=== PATIENT | male | born 1965 | race Caucasian/White ===

== ENCOUNTER 2016-07-07 20:25 | Inpatient (IN) | payer OTHER ==
--- NOTE | ~2016-07-07 | PRECARD ---
[facility] [address] [place] [address] [place]. [address] NAME: KEARA OREILLY : 61 STATUS : ADM Vin PAT#: [id number] AGE: 51 ADM/REG DATE : 07/07/16 MR#: [id number] REPORT SERV DATE: 07/08/16 DICTATED BY: NAEEM DUMONT DATE: 07/08/16 REPORT STATUS : Draft TRANSCRIBED BY: MODBryant DATE: 07/08/16 DATE OF ADMISSION: 07/07/2016 HISTORY OF PRESENT ILLNESS: The patient is a 51-year-old white male with a history of multivessel stenting. His last stent was approximately a year ago. The patient presented to the emergency room complaining of "palpitations" and "lightheadedness." He has been taking nitroglycerin for the palpitations and says it seems to give him some relief. Cardiac enzymes are negative, and EKG shows no acute changes. PAST MEDICAL HISTORY: Remarkable for coronary artery disease with multivessel stenting, essential hypertension, type 2 diabetes, and morbid obesity. SOCIAL HISTORY: The patient does not smoke. FAMILY HISTORY: Positive for coronary disease. REVIEW OF SYSTEMS: The patient denies cough, wheeze, sputum production, vomiting, diarrhea, or dysuria. PHYSICAL EXAMINATION: VITAL SIGNS: Blood pressure is 140/80, heart rate is 70 and regular, and respirations 16 and unlabored. ENT: Exam is unremarkable. NECK: Shows no jugular venous distention with good carotid upstroke. CHEST: Clear. CARDIOVASCULAR: The PMI is not palpable. S1 is normal. S2 is narrowly split. No gallop is present. ABDOMEN: Soft and nontender with normal bowel sounds. EXTREMITIES: Show no cyanosis, clubbing, or edema. There is an ulcer on the plantar surface of the left foot. SKIN: Warm and dry. NEUROPSYCHIATRIC: The patient is oriented x3 with appropriate affect. LABORATORY DATA: Potassium is 4.0, BUN is 21, and creatinine is 1.3. Hematocrit is 33 and white blood cell count 11,300. IMPRESSION: 1. Acute coronary syndrome. 2. Hypertension. 3. Type 2 diabetes, out of control. 4. Left foot ulcer. 5. Morbid obesity. PLAN: 1. Medicine consultation for treatment of diabetes and foot ulcer. 2. Continue home medications and weight-based heparin protocol. [facility] [address] [place]. [address] NAME: KEARA OREILLY : 61 STATUS : ADM Vin PAT#: [id number] AGE: 51 ADM/REG DATE : 07/07/16 MR#: [id number] REPORT SERV DATE: 07/08/16 DICTATED BY: NAEEM DUMONT DATE: 07/08/16 REPORT STATUS : Draft TRANSCRIBED BY: SHERRYL DATE: 07/08/16 3. Echocardiogram. 4. Consider cardiac catheterization after blood sugar and wound infections are stabilized. STERLING/KRIS Naeem Dumont M.D., [place] / [id number] CC: Naeem Dumont M.D., [place]
--- NOTE | ~2016-07-07 | OP ---
Record Of Operation [facility] [address] [place]. [address] NAME: KEARA OREILLY : 61 STATUS : ADM IN PAT#: [id number] AGE: 51 ADM/REG DATE : 07/07/16 MR#: [id number] REPORT SERV DATE: 07/10/16 DICTATED BY: NAEEM SPARKS DATE: 07/10/16 REPORT STATUS : Draft TRANSCRIBED BY: KRIS DATE: 07/10/16 DATE OF PROCEDURE: 07/10/2016 CARDIAC CATHETERIZATION REPORT INDICATION FOR THIS PROCEDURE: Acute coronary syndrome. PROCEDURE IN DETAIL: The patient was prepped and draped in the usual sterile fashion. Moderate IV sedation was administered. Adequate anesthesia was obtained over the right femoral vessels using lidocaine infiltration. Using the Seldinger technique, a 6-Urdu sheath was placed in the right femoral artery. A 6 FL4 coronary catheter was advanced to the left coronary ostium. Left coronary injections were performed in multiple views. Left coronary catheter was then exchanged for 6 FR4 coronary catheter, which was advanced to the right coronary ostium. Right coronary artery injections were then performed with the MELANY and LOVE views. The right coronary catheter was then exchanged for a 6-Urdu pigtail catheter, which was advanced in the left ventricular cavity. Pressures were measured across the aortic valve and left ventricular angiogram was obtained in the LOVE projection. Pigtail catheter was removed over a guidewire and sheath left in place in anticipation of subsequent angioplasty. There were no apparent complications. RESULTS: 1. Pressures: Left ventricular end-diastolic pressure was 18 mmHg. No gradient was present across the aortic valve. 2. Left ventricular angiogram: Left ventricle contracted normally with an estimated ejection fraction of 60%. 3. Coronary arteriograms: The left main coronary artery is normal. Left anterior descending coronary artery has a patent stented segment in its proximal and midportion. There are luminal irregularities, but there is no obstructive disease. The left circumflex coronary is normal. The right coronary artery is a dominant vessel and has a 99% midvessel stenosis. There is also a 40% to 50% lesion distal to the 99% in-stent stenosis. IMPRESSION: 1. High-grade in-stent stenosis of mid right coronary artery. 2. Patent stents in LAD. 3. Normal left ventricular ejection fraction. PLAN: Proceed with stenting of right coronary artery. STERLING/KRIS Naeem Sparks M.D., DarcyCLeanna Record Of Operation [facility] [address] [place]. [address] NAME: KEARA OREILLY : 61 STATUS : ADM IN PAT#: [id number] AGE: 51 ADM/REG DATE : 07/07/16 MR#: [id number] REPORT SERV DATE: 07/10/16 DICTATED BY: NAEEM SPARKS DATE: 07/10/16 REPORT STATUS : Draft TRANSCRIBED BY: KRIS DATE: 07/10/16 / [id number] CC: Naeem Sparks M.D., [place]
--- NOTE | ~2016-07-07 | CN ---
Consultation Report [facility] [address] [place]. [address] NAME: KEARA OREILLY : 61 STATUS : ADM Vin PAT#: [id number] AGE: 51 ADM/REG DATE : 07/07/16 MR#: [id number] REPORT SERV DATE: 07/08/16 DICTATED BY: GRICELDA BELL DATE: 07/08/16 REPORT STATUS : Draft TRANSCRIBED BY: MODL DATE: 07/08/16 CONSULTATION REPORT DATE OF CONSULTATION: 07/08/2016 REASON FOR CONSULTATION: Diabetes management. HISTORY OF PRESENT ILLNESS: This is a very pleasant 51-year-old gentleman with a past medical history significant for diabetes, hypertension, hyperlipidemia, and coronary artery disease who presents today complaining of chest pain. He complains of chest pain and heaviness located midsternally that radiates to his neck. He actually reports that he has been having some intermittent chest pains over the past couple of weeks with origin to midsternum and radiating to his left upper extremity, but he reports that he dismissed as reflux. Tonight, he reports experiencing some chest discomfort as well as palpitations, lightheadedness, and dyspnea on exertion. He reports that the chest discomfort was worse than it had been over the past few weeks, and he came to the emergency room for further evaluation and treatment. Additionally, the patient complains of some peripheral edema with right being worse than the left. He complains of swelling, warmth, and some tenderness to right lower extremity. He also has a chronic ulceration to left foot, which he reports is actually getting a little better. He denies having any fever or chills. No nausea or vomiting. He is not currently under the care of a primary care provider, but does follow with Dr. Sparks of Cardiology. PAST MEDICAL HISTORY: 1. Hypertension. 2. Insulin-dependent diabetes mellitus type 2. 3. Hyperlipidemia. 4. GERD. 5. Depression. 6. Morbid obesity with a BMI of 54. 7. Obstructive sleep apnea/probable obesity hypoventilation syndrome, noncompliant with CPAP. 8. Coronary artery disease, status post multivessel stenting, 9 vessels per the patient. 9. History of MRSA septic arthritis. 10.Tobacco dependency. PAST SURGICAL HISTORY: Umbilical hernia repair x2 and coronary artery disease, status post multiple vessel stent placement. ALLERGIES: NO KNOWN DRUG ALLERGIES. HOME MEDICATIONS: 1. Vitamin C 1000 mg p.o. q.a.m. 2. Aspirin 325 mg p.o. q.a.m. Consultation Report [facility] [id number] [place]. [address] NAME: KEARA OREILLY : 61 STATUS : ADM Vin PAT#: [id number] AGE: 51 ADM/REG DATE : 07/07/16 MR#: [id number] REPORT SERV DATE: 07/08/16 DICTATED BY: GRICELDA BELL DATE: 07/08/16 REPORT STATUS : Draft TRANSCRIBED BY: KRIS DATE: 07/08/16 3. Lipitor 40 mg p.o. at bedtime. 4. Wellbutrin XL 150 mg p.o. q.a.m. 5. Coreg 12.5 mg p.o. b.i.d. 6. Vitamin D 4000 units p.o. daily. 7. Cinnamon bark 2000 mg p.o. b.i.d. 8. Vitamin B12, 1000 mcg p.o. q.a.m. 9. NovoLog 30 units t.i.d. with meals. 10.Lantus 75 units subcu at bedtime. 11.Acidophilus 1 tab p.o. b.i.d. 12.Glucophage 1000 mg p.o. b.i.d. 13.Fish oil 1000 mg p.o. b.i.d. 14.Effient 10 mg p.o. q.a.m. 15.Altace 5 mg p.o. at bedtime. 16.Zantac 300 mg p.o. b.i.d. 17.Ranexa ER 500 mg p.o. b.i.d. 18.Silvadene applied to left foot wound twice daily. REVIEW OF SYSTEMS: A complete review of systems was obtained and is negative except as noted in past and present history. PHYSICAL EXAMINATION: VITAL SIGNS: Blood pressure 185/97, pulse 81, respirations 17, temperature 97.9, and oxygen saturation 95% on room air. GENERAL: Reveals a well-developed, well-nourished, obese white male, sitting up in bed, in no acute distress, but does appear to be uncomfortable. He is alert and oriented. He is pleasant and very cooperative with examination. HEENT: Head, normocephalic, atraumatic. Pupils equal, round, and reactive to light. Extraocular muscles intact. Sclerae anicteric. Oropharynx crowded, but mostly clear. Slightly dry oral mucosa noted. NECK: Supple. No jugular venous distention appreciated. LUNGS: Diminished at bases bilaterally, otherwise clear. Respirations even and unlabored on room air. Symmetrical chest rise noted. CARDIOVASCULAR: S1 and S2 noted. Distant, but regular rate and rhythm. No murmur, rub, or gallop appreciated. ABDOMEN: Obese. Soft, nontender, nondistended. Normoactive bowel sounds. No appreciable organomegaly. EXTREMITIES: Bilateral lower extremity edema, right greater than left. Erythema and warmth noted to posterior right lower extremity at calf. Palpable pedal pulses bilaterally. Approximately 2 cm chronic-appearing foot ulceration noted to left lower extremity. SKIN: Slightly diaphoretic, but warm. Good color. NEUROLOGIC: Alert and oriented x3. Grossly nonfocal. Formal gait not assessed. PSYCH: Appropriate mood and affect. LABORATORY AND DIAGNOSTIC DATA: WBC 8500, hemoglobin 11.3, hematocrit 33.1, and platelets Consultation Report [address] [place]. [address] NAME: KEARA OREILLY : 61 STATUS : ADM Vin PAT#: [id number] AGE: 51 ADM/REG DATE : 07/07/16 MR#: [id number] REPORT SERV DATE: 07/08/16 DICTATED BY: GRICELDA BELL DATE: 07/08/16 REPORT STATUS : Draft TRANSCRIBED BY: MODL DATE: 07/08/16 353,000. Sodium 136, potassium 4.0, chloride 103, CO2 of 23, BUN 21, creatinine 1.30, glucose 429, magnesium 2.0, serum myoglobin 92, and initial troponin I of 0.05. Urinalysis within normal limits. EKG shows normal sinus rhythm at 99 beats per minute with some ST-segment changes noted, but no EKG available for comparison. No chest x-ray available. IMPRESSION: 1. Chest pain in a patient with known coronary artery disease, status post multivessel stenting x9, rule out myocardial infarction. 2. Dyspnea on exertion with mildly elevated troponin. 3. Insulin-dependent diabetes mellitus type 2 with hyperglycemia. 4. Right lower extremity erythema, edema, and tenderness, rule out deep venous thrombosis with probable cellulitis of unknown chronicity. 5. Uncontrolled hypertension. 6. Hyperlipidemia. 7. Chronic left foot ulceration. 8. Gastroesophageal reflux disease. 9. Depression. 10.Morbid obesity. 11.Tobacco dependency. 12.Obstructive sleep apnea, noncompliant with CPAP with probable obesity hypoventilation syndrome. PLAN/RECOMMENDATIONS: The patient will be admitted under cardiac monitoring. I will continue heparin drip initiated in the emergency department. Management of cardiac issues per attending, who is the patient's primary boarding kennel or cattery operator. I will check a venous Doppler ultrasound to rule out DVT and cover with empiric IV antibiotics for cellulitis. I will check a procalcitonin, a BNP, hemoglobin A1c, and a baseline chest x-ray. I will also check wound culture of left foot ulceration and consult Wound Care team. Insulin per sliding scale as well as scheduled NovoLog when tolerating diet. I have resumed Levemir decreased dosing while n.p.o. for further cardiac evaluation. Home medications have been reconciled. IV hydralazine available as needed for uncontrolled hypertension. Thank you so much for this consultation. We will follow along with you. LAURA/KRIS Gricelda Bell NP Consultation Report [address] [address] NAME: KEARA OREILLY : 61 STATUS : ADM Vin PAT#: [id number] AGE: 51 ADM/REG DATE : 07/07/16 MR#: [id number] REPORT SERV DATE: 07/08/16 DICTATED BY: GRICELDA BELL DATE: 07/08/16 REPORT STATUS : Draft TRANSCRIBED BY: MODL DATE: 07/08/16 / [id number] CC: Naeem Sparks M.D., F.A.CLeannaC.
--- NOTE | ~2016-07-07 | DS ---
Discharge Summary [facility] [address] [place]. [address] NAME: KEARA OREILLY : 61 STATUS : DIS IN PAT#: [id number] AGE: 51 ADM/REG DATE : 07/07/16 MR#: [id number] REPORT SERV DATE: 07/20/16 DICTATED BY: NAEEM DUMONT DATE: 07/20/16 REPORT STATUS : Draft TRANSCRIBED BY: KRIS DATE: 07/20/16 Data Collection from hospitalization DISCHARGE DIAGNOSES: 1. Acute coronary syndrome. 2. Coronary artery disease status post percutaneous coronary intervention to the right coronary artery. 3. Hypertension. 4. Type 2 diabetes mellitus. 5. Morbid obesity. CONSULTATIONS: Gricelda Bell NP. PROCEDURES: 1. Cardiac catheterization, 07/10/2016. 2. PTCA, 07/10/2016. 3. Venous Doppler ultrasound of the right lower extremity, 07/08/2016. DISCHARGE MEDICATIONS: 1. Vitamin C 1000 mg every morning. 2. Sathya aspirin 325 mg every morning. 3. Lipitor 40 mg at bedtime. 4. Wellbutrin XL 150 mg every morning. 5. Coreg 25 mg twice a day. 6. Vitamin D 4000 units daily. 7. Cinnamon oral supplement 2000 mg twice a day. 8. Vitamin B12 1000 mcg every morning. 9. NovoLog injection insulin 30 units subcutaneously three times a day with meals. 10.Lantus 75 units subcutaneously every evening. 11.Acidophilus one tablet twice a day. 12.Glucophage 1000 mg twice a day. 13.Fish oil 1000 mg twice a day. 14.Effient 10 mg every morning. 15.Altace 5 mg at bedtime. 16.Zantac 300 mg twice a day. 17.Ranexa 500 mg twice a day. 18.Silvadene cream one application topically twice a day. CONDITION AT DISCHARGE: Stable. DISPOSITION: The patient was discharged home on an 1800-calorie cardiac/diabetic diet with activities as instructed. He would follow up with me on 08/01/2016. HOSPITAL COURSE: This is a 51-year-old man who has a history of multivessel stenting. His last stent was approximately a year ago. The patient presented to the emergency room at this time complaining of palpitations and lightheadedness, he has been taking nitroglycerin for the palpitations and stated they gave some relief. Cardiac enzymes were negative. EKG showed no acute changes. He was felt to have acute coronary syndrome. His white count was Discharge Summary [facility] [id number] [facility] [place]. [address] NAME: KEARA OREILLY : 61 STATUS : DIS IN PAT#: [id number] AGE: 51 ADM/REG DATE : 07/07/16 MR#: [id number] REPORT SERV DATE: 07/20/16 DICTATED BY: NAEEM DUMONT DATE: 07/20/16 REPORT STATUS : Draft TRANSCRIBED BY: MODL DATE: 07/20/16 11,300 and creatinine was 1.3. He has a history of out of control type 2 diabetes and hypertension. He is morbidly obese. It was felt that the patient would need to undergo cardiac catheterization and possible percutaneous coronary interventions once blood sugar and wound infections were stabilized. The patient does have a left foot ulcer. Home medications were continued as well as weight based heparin protocol. Echocardiogram was requested. A venous Doppler ultrasound of the right lower extremity was performed, it was negative for deep venous thrombosis. The patient was seen by Gricelda Bell regarding diabetes management. The patient complained of some peripheral edema with the right being worse than the left. He complained of swelling more than tenderness to the right lower extremity. He also has a chronic ulceration of the left foot which he reports was actually getting a little better. EKG revealed normal sinus rhythm at 99 beats per minute with some ST-segment changes noted, but no EKG was available for comparison. Heparin drip had been initiated. IV antibiotics were going to be started for cellulitis. We would check a procalcitonin, BNP, hemoglobin A1c, and baseline chest x-ray. A wound culture was going to be obtained of the left foot ulceration. Sliding scale insulin would be started as well as scheduled NovoLog when he is tolerating his diet. Levemir was going to be resumed at a decreased dose while he was n.p.o. IV hydralazine would be given as needed for uncontrolled hypertension. The following day, he had no chest pain. His lungs were clear. He had no new complaints. Levemir was increased. Levaquin was continued. Cardiac workup was in progress. On 07/10/2016, he was taken to the cardiac veterinary laboratory diagnostician where he underwent the above- mentioned procedures. He tolerated these well and there were no complications. Discharge planning was performed. On 07/11/2016, he was in no distress. His lungs were clear. Cath site was stable. Discharge instructions were given. Troponin was negative. Due to his improved and stable condition, he was discharged home with the above-stated instructions. Information collected by: Deloris Cruz I submit the above information as my discharge summary. VENKATESH/KRIS Naeem Dumont M.D., [place].Master.C.C. / [id number] CC: Naeem Dumont M.D., FLynette.CLeannaCLeanna Chaney MD
--- NOTE | ~2016-07-07 | OP ---
Record Of Operation [facility] [address] [place]. [address] NAME: KEARA OREILLY : 61 STATUS : ADM IN PAT#: [id number] AGE: 51 ADM/REG DATE : 07/07/16 MR#: [id number] REPORT SERV DATE: 07/10/16 DICTATED BY: NAEEM SPARKS DATE: 07/10/16 REPORT STATUS : Draft TRANSCRIBED BY: MODBryant DATE: 07/10/16 DATE OF PROCEDURE: 07/10/2016 PTCA REPORT INDICATION FOR THIS PROCEDURE: Acute coronary syndrome. PROCEDURE IN DETAIL: The patient had already been prepped and draped. 6-Cayman Islander sheath was in place in the right femoral artery from preceding cardiac catheterization. A 6 JR4 coronary guiding catheter was advanced to the right coronary ostium. Right coronary artery injections confirmed the presence of a 99% in-stent stenosis of the mid right coronary artery. A 0.014 Graphix guidewire was passed across the lesion and positioned distally in the vessel. The vessel was then dilated with a 3.0/15 Emerge balloon at up to 15 atmospheres of pressure for 15 seconds in duration. An initial attempt to pass a 3.0/20 Synergy stent was unsuccessful. The Eduardo guiding catheter was exchanged for a 6-Cay[place] Islander AL1 coronary guiding catheter. Again, a 0.014 Graphix guidewire was passed across the lesion. With the help of a GuideLiner, a 3.0/20 Synergy stent was deployed across the lesion in the mid right coronary artery at up to 15 atmospheres of pressure for 15 seconds in duration. The stent was then dilated with a 3.25/15 NC Emerge balloon at up to 15 atmospheres of pressure for 15 seconds in duration. Following removal of balloon and guidewire, final right coronary artery injection showed 0% residual stenosis at the site of stent implantation with CORETTA grade III distal flow. Guiding catheter was removed. The sheath left in place. There were no apparent complications. TOTAL CONTRAST USED: 175 mL. TOTAL RADIATION EXPOSURE: 1703 mGy. ESTIMATED BLOOD LOSS: No significant blood loss occurred. IMPRESSION: Successful percutaneous transluminal coronary angioplasty and placement of drug- eluting stent in mid right coronary artery. STERLING/KRIS Naeem Sparks M.D., [place] / [id number] CC: Naeem Sparks M.D., [place]
[~2016-07-07 20:25] MED LIST: ACID REDUCER OTC; ALTA2.5 PO; ALTA5 PO; ALTACE10 MG PO; ANTIBIOTIC RX PO; ASA5GR PO; ASAB PO; ASABAYER PO; AUG500 PO; B12250T PO; BACDS PO; CINNAMON; CINNAMON 1000 MG OR; COREG12 PO; COREG3 PO; CYANO1000T PO; DIOVAN HC1 PO; EFFIENT10 PO; EXFORGE1 TAB PO; FISH OIL1200 MG PO; FISH-EPA1000 MG PO; FLOMAX4 PO; GLUCOPHAGE1000 MG PO; GLUCOPHXR PO; GLUCPH PO; HALF81 PO; IRON325 MG PO; LANTUS SC; LIPITOR20 PO; LIPITOR40 PO; LOP50 PO; MELA3 PO; MELATONIN300 MCG PO; MOBIC15 MG PO; NIACIN 500 PO; NOVOLOG SC; PCET PO; PLAVIX PO; PRILOSEC40 MG PO; RAN500 PO; RENEXA; VIB100 PO; VITAMIN B-122500 MCG SL; VITAMIN D1000 UNI1 PO; VITC500 PO; VOLTXR100 PO; WELLXL150 PO; ZANTAC 150 PO; ZANTAC150 MG PO; ZANTAC300 MG PO; ZOL100 PO; ZOL50 PO; [UNRECOGNIZED DRUG - REMARK]
[2016-07-07 21:42] LABS: BASOPHILS 0.2 %; BASOPHILS ABSOLUTE 0.02 10/3/uL (0.0-0.16); EOSINOPHILS 2.8 %; EOSINOPHILS ABSOLUTE 0.24 10/3/uL (0.0-0.53); ER CBC TAT 0 Hrs 09 Mins; HEMATOCRIT 33.1 % (40.0-51.0); HEMOGLOBIN 11.3 g/dL (13.6-17.8); IMMATURE GRANULOCYTES 0.2 %; IMMATURE GRANULOCYTES ABSOLUTE 0.02 10/3/uL (0.0-0.11); LYMPHOCYTES 26.4 %; LYMPHOCYTES ABSOLUTE 2.24 10/3/uL (0.67-4.30); MANUAL DIFF NO %; MEAN CORPUS HGB CONC 34.1 g/dL (32.0-36.0); MEAN CORPUSCULAR HEMOGLOB 28.2 pg (26.0-34.0); MEAN CORPUSCULAR VOLUME 82.5 fL (80-100); MEAN PLATELET VOLUME 9.2 fL (9.2-13.0); MONOCYTES 5.3 %; MONOCYTES ABSOLUTE 0.45 10/3/uL (0.21-1.20); NEUTROPHILS 65.1 %; PLATELET COUNT 353 10/3/uL (150-400); RBC DISTRIBUTION WIDTH 14.6 % (12.0-16.0); RED CELL COUNT 4.01 10/6/uL (4.7-6.1); WHITE BLOOD CELLS 8.5 10/3/uL (4.5-10.5)
[2016-07-07 21:48] LABS: INTERNATIONAL NORMAL RATI 0.9 UNITS (-); PARTIAL THROMBO TIME 25.8 SEC (22.5-37.2); PROTIME (NOT ORD) 12.5 SEC (12.0-14.5)
[2016-07-07 22:02] LABS: BUN (BLOOD UREA NITROGEN) 21 MG/DL (6-23); CALCIUM, SERUM 9.1 MG/DL (8.5-10.4); CHEST PAIN PROFILE TAT 0 Hrs 29 Mins; CHLORIDE, SERUM 103 MMOL/L (96-112); CO2 (CARBON DIOXIDE) 23 MMOL/L (24-34); GFR AFRICAN AMERICAN 72 ML/MIN (>=60); GFR NON AFRICAN AMERICAN 62 ML/MIN (>=60); GLUCOSE, SERUM 429 MG/DL (60-99); SODIUM, SERUM 136 MMOL/L (135-148); TROPONIN I 0.05 NG/ML (<0.05)
[2016-07-07] MEDS ORDERED: CYANO1000T PO (23:30)
[2016-07-07] MEDS ORDERED: ASABAYER PO (23:30)
[2016-07-07] MEDS ORDERED: ACIDOPHILU2 PO (23:31)
[2016-07-07] MEDS ORDERED: CINNAMONPO PO (23:31)
[2016-07-07] MEDS ORDERED: FISH-EPA1000 MG PO (23:31)
[2016-07-07] MEDS ORDERED: VITAMIN D2000 UNIT PO (23:31)
[2016-07-07] MEDS ORDERED: NOVOLOG SC (23:32)
[2016-07-07] MEDS ORDERED: LANTUS SC (23:32)
[2016-07-07] MEDS ORDERED: VITC500 PO (23:32)
[2016-07-07] MEDS ORDERED: EFFIENT10 PO (23:33)
[2016-07-07] MEDS ORDERED: COREG12 PO (23:33)
[2016-07-07] MEDS ORDERED: WELLXL150 PO (23:33)
[2016-07-07] MEDS ORDERED: LIPITOR40 PO (23:33)
[2016-07-07] MEDS ORDERED: GLUCOPHAGE1000 MG PO (23:34)
[2016-07-07] MEDS ORDERED: RAN500 PO (23:34)
[2016-07-07] MEDS ORDERED: ALTA5 PO (23:34)
[2016-07-07] MEDS ORDERED: ZANTAC300 MG PO (23:35)
[2016-07-07] MEDS ORDERED: SILVADENE CREAM 1% TOP (23:36)
[2016-07-07 23:39] LABS: MYOGLOBIN, SERUM 92 NG/ML (0-85)
[2016-07-07 23:51] LABS: ASCORBIC ACID (UR NOT ORDER) 20 (NEG); BILIRUBIN, URINE NEGATIVE (NEG); ER URINALYSIS TAT 0 Hrs 00 Mins; KETONE, URINE NEGATIVE (NEG); LEUKOCYTE ESTERASE(NOT OR NEG (NEG); NITRITE (URINE) NEG (NEG); WBC (NOT ORDERED) (RFLEX) < 1 (0-5)
[2016-07-08 05:37] LABS: BASOPHILS 0.4 %; BASOPHILS ABSOLUTE 0.03 10/3/uL (0.0-0.16); EOSINOPHILS 3.8 %; EOSINOPHILS ABSOLUTE 0.27 10/3/uL (0.0-0.53); HEMATOCRIT 30.1 % (40.0-51.0); HEMOGLOBIN 10.2 g/dL (13.6-17.8); IMMATURE GRANULOCYTES 0.6 %; IMMATURE GRANULOCYTES ABSOLUTE 0.04 10/3/uL (0.0-0.11); LYMPHOCYTES 37.5 %; LYMPHOCYTES ABSOLUTE 2.64 10/3/uL (0.67-4.30); MEAN CORPUS HGB CONC 33.9 g/dL (32.0-36.0); MEAN CORPUSCULAR HEMOGLOB 28.2 pg (26.0-34.0); MEAN CORPUSCULAR VOLUME 83.1 fL (80-100); MEAN PLATELET VOLUME 9.3 fL (9.2-13.0); MONOCYTES ABSOLUTE 0.49 10/3/uL (0.21-1.20); NEUTROPHILS 50.7 %; NEUTROPHILS ABSOLUTE 3.57 10/3/uL (2.02-8.40); PLATELET COUNT 322 10/3/uL (150-400); RBC DISTRIBUTION WIDTH 14.8 % (12.0-16.0); RED CELL COUNT 3.62 10/6/uL (4.7-6.1)
[2016-07-08 05:41] LABS: MANUAL DIFF NO %
[2016-07-08 05:57] LABS: BUN (BLOOD UREA NITROGEN) 22 MG/DL (6-23); CALCIUM, SERUM 8.6 MG/DL (8.5-10.4); CHLORIDE, SERUM 104 MMOL/L (96-112); CHOL/HDL RATIO(NOT ORDER) 6.1 (0-5); CHOLESTEROL 158 MG/DL (< 200); CO2 (CARBON DIOXIDE) 23 MMOL/L (24-34); CREATININE 1.07 MG/DL (0.70-1.30); GFR AFRICAN AMERICAN 91 ML/MIN (>=60); GFR NON AFRICAN AMERICAN 79 ML/MIN (>=60); HDL CHOLESTEROL 26 MG/DL (> 39); NON-HDL CHOLESTEROL 132 MG/DL (< 160); PHOSPHORUS, SERUM 4.7 MG/DL (2.5-4.5); POTASSIUM, SERUM 4.1 MMOL/L (3.5-5.3); SGPT(ALT) 27 U/L (5-65); SODIUM, SERUM 138 MMOL/L (135-148)
[2016-07-08 05:58] LABS: GLUCOSE, SERUM 318 MG/DL (60-99); LDL CHOLESTEROL 56 MG/DL (< 130); TRIGLYCERIDE 383 MG/DL (< 150); TROPONIN I 0.06 NG/ML (<0.05)
[2016-07-08 06:05] LABS: B NATRIURETIC PEPTIDE (BNP) 25.8 PG/ML (< 100.0)
[2016-07-08 06:32] LABS: PROCALCITONIN 0.05 ng/mL (<0.5)
[2016-07-08 08:06] LABS: GLYCOHEMOGLOBIN (HbA1c) 9.7 % (4.7-6.1)
[2016-07-08 16:40] LABS: TROPONIN I 0.03 NG/ML (<0.05)
[2016-07-08 16:42] LABS: CPK 80 U/L (0-200)
[2016-07-10 05:56] LABS: BASOPHILS 0.3 %; BASOPHILS ABSOLUTE 0.03 10/3/uL (0.0-0.16); EOSINOPHILS ABSOLUTE 0.26 10/3/uL (0.0-0.53); HEMATOCRIT 31.1 % (40.0-51.0); HEMOGLOBIN 10.5 g/dL (13.6-17.8); IMMATURE GRANULOCYTES 0.3 %; IMMATURE GRANULOCYTES ABSOLUTE 0.03 10/3/uL (0.0-0.11); LYMPHOCYTES 26.1 %; LYMPHOCYTES ABSOLUTE 2.24 10/3/uL (0.67-4.30); MEAN CORPUS HGB CONC 33.8 g/dL (32.0-36.0); MEAN CORPUSCULAR HEMOGLOB 28.2 pg (26.0-34.0); MEAN CORPUSCULAR VOLUME 83.4 fL (80-100); MEAN PLATELET VOLUME 9.1 fL (9.2-13.0); MONOCYTES 6.1 %; MONOCYTES ABSOLUTE 0.52 10/3/uL (0.21-1.20); NEUTROPHILS 64.2 %; NEUTROPHILS ABSOLUTE 5.51 10/3/uL (2.02-8.40); PLATELET COUNT 309 10/3/uL (150-400); RBC DISTRIBUTION WIDTH 14.9 % (12.0-16.0); RED CELL COUNT 3.73 10/6/uL (4.7-6.1); WHITE BLOOD CELLS 8.6 10/3/uL (4.5-10.5)
[2016-07-10 05:59] LABS: MANUAL DIFF NO %
[2016-07-10 06:08] LABS: INTERNATIONAL NORMAL RATI 1.1 UNITS (-); PARTIAL THROMBO TIME 82.3 SEC (22.5-37.2)
[2016-07-10 06:13] LABS: BUN (BLOOD UREA NITROGEN) 19 MG/DL (6-23); CALCIUM, SERUM 8.8 MG/DL (8.5-10.4); CHLORIDE, SERUM 105 MMOL/L (96-112); CHOLESTEROL 154 MG/DL (< 200); CO2 (CARBON DIOXIDE) 28 MMOL/L (24-34); CREATININE 1.04 MG/DL (0.70-1.30); GFR AFRICAN AMERICAN 95 ML/MIN (>=60); GFR NON AFRICAN AMERICAN 82 ML/MIN (>=60); GLUCOSE, SERUM 202 MG/DL (60-99); HDL CHOLESTEROL 31 MG/DL (> 39); LDL CHOLESTEROL 81 MG/DL (< 130); NON-HDL CHOLESTEROL 123 MG/DL (< 160); POTASSIUM, SERUM 4.2 MMOL/L (3.5-5.3); SODIUM, SERUM 140 MMOL/L (135-148); TRIGLYCERIDE 210 MG/DL (< 150)
[2016-07-10 16:22] LABS: CPK 61 U/L (0-200)
[2016-07-10 16:23] LABS: CK-MB 1.8 NG/ML
[2016-07-11 04:43] LABS: BASOPHILS 0.2 %; BASOPHILS ABSOLUTE 0.02 10/3/uL (0.0-0.16); EOSINOPHILS 2.4 %; EOSINOPHILS ABSOLUTE 0.21 10/3/uL (0.0-0.53); HEMATOCRIT 33.1 % (40.0-51.0); HEMOGLOBIN 10.9 g/dL (13.6-17.8); IMMATURE GRANULOCYTES 0.3 %; IMMATURE GRANULOCYTES ABSOLUTE 0.03 10/3/uL (0.0-0.11); LYMPHOCYTES ABSOLUTE 1.52 10/3/uL (0.67-4.30); MANUAL DIFF NO %; MEAN CORPUS HGB CONC 32.9 g/dL (32.0-36.0); MEAN CORPUSCULAR HEMOGLOB 28.1 pg (26.0-34.0); MEAN CORPUSCULAR VOLUME 85.3 fL (80-100); MEAN PLATELET VOLUME 9.4 fL (9.2-13.0); MONOCYTES 6.2 %; MONOCYTES ABSOLUTE 0.55 10/3/uL (0.21-1.20); NEUTROPHILS 73.9 %; NEUTROPHILS ABSOLUTE 6.59 10/3/uL (2.02-8.40); PLATELET COUNT 318 10/3/uL (150-400); RBC DISTRIBUTION WIDTH 14.8 % (12.0-16.0); RED CELL COUNT 3.88 10/6/uL (4.7-6.1); WHITE BLOOD CELLS 8.9 10/3/uL (4.5-10.5)
[2016-07-11 05:02] LABS: BUN (BLOOD UREA NITROGEN) 14 MG/DL (6-23); CALCIUM, SERUM 9.2 MG/DL (8.5-10.4); CHLORIDE, SERUM 105 MMOL/L (96-112); CK-MB 1.7 NG/ML; CO2 (CARBON DIOXIDE) 28 MMOL/L (24-34); CPK 59 U/L (0-200); CREATININE 1.09 MG/DL (0.70-1.30); GFR AFRICAN AMERICAN 89 ML/MIN (>=60); GFR NON AFRICAN AMERICAN 77 ML/MIN (>=60); GLUCOSE, SERUM 198 MG/DL (60-99); POTASSIUM, SERUM 4.4 MMOL/L (3.5-5.3); SODIUM, SERUM 141 MMOL/L (135-148); TROPONIN I 0.03 NG/ML (<0.05)
== END 2016-07-11 12:45 | disposition home or self-care (01) | DRG 247 ==
LOC: ER 20:25 → CDU1 23:11 → SSU1 07-10 14:20
PROVIDERS: Emergency Medicine; Internal Medicine Interventional Cardiology; Nurse Practitioner
PROC: 027034Z Dilation of Coronary Artery, One Artery with Drug-eluting Intraluminal Device, Percutaneous Approach (ICD-10-PCS; principal; 2016-07-10)
PROC: 4A023N7 Measurement of Cardiac Sampling and Pressure, Left Heart, Percutaneous Approach (ICD-10-PCS; 2016-07-10)
PROC: B2151ZZ Fluoroscopy of Left Heart using Low Osmolar Contrast (ICD-10-PCS; 2016-07-10)
PROC: B2111ZZ Fluoroscopy of Multiple Coronary Arteries using Low Osmolar Contrast (ICD-10-PCS; 2016-07-10)
DX: I25.110 Atherosclerotic heart disease of native coronary artery with unstable angina pectoris (principal); I11.0 Hypertensive heart disease with heart failure; E11.621 Type 2 diabetes mellitus with foot ulcer; Z68.43 Body mass index [BMI] 50.0-59.9, adult; L03.115 Cellulitis of right lower limb; E66.2 Morbid (severe) obesity with alveolar hypoventilation; L97.521 Non-pressure chronic ulcer of other part of left foot limited to breakdown of skin; E78.5 Hyperlipidemia, unspecified; K21.9 Gastro-esophageal reflux disease without esophagitis; F32.9 Major depressive disorder, single episode, unspecified; E11.65 Type 2 diabetes mellitus with hyperglycemia; G47.33 Obstructive sleep apnea (adult) (pediatric); Z95.5 Presence of coronary angioplasty implant and graft; Z82.49 Family history of ischemic heart disease and other diseases of the circulatory system; Z91.19 Patient's noncompliance with other medical treatment and regimen; Z86.14 Personal history of Methicillin resistant Staphylococcus aureus infection; Z98.890 Other specified postprocedural states
CPT/HCPCS: 71020; 80048; 80061; 80202; 81001; 82550; 82553; 82962; 83036; 83735; 83874; 83880; 84100; 84145; 84460; 84484; 85025; 85610; 85730; 87070; 87077; 87186; 87205; 93005; 93458; 93971; 96374; 96375; 99152; 99153; 99291; A9270-GY; C1725; C1769; C1874; C1887; C1894; C8929; C9600; J0583; J1170; J2250; J2405; J3010; J3370; Q9957; Q9967